=== PATIENT | male | born 1985 | race Caucasian/White ===

== ENCOUNTER 2016-06-02 09:08 | Emergency (ER) | payer MEDICAID ==
[~2016-06-02] VITALS: Ht 170.2 cm; Wt 77.1 kg
[2016-06-02] MEDS ORDERED: BUPRENORPHINE H1 TAB SL (09:24)
--- NOTE | 2016-06-02 09:36 | Emergency Room Report ---
History of Present Illness Time Seen by 0920 Presenting Problem in Triage Pt arrived:Walked Presenting Problem:SPOUSE STATES PT HAS BEEN VOMITING FOR 4 HOURS WITH PAIN IN SUPRAPUBIC AREA. Onset of symptoms date/time:/ or onset unknown for:MEDICAL HX UNKNOWN Treatment Prior to Arrival: [employer] Provided by: Sepsis Risk Assessment: Temp: 98.1 B/P: 123/71 MAP: 88 Pulse: 69 Resp: 18 Recent fever? N Clinical Suspician of Infection? N Mental Status: 1 - Regular (Normal Baseline) Sepsis Risk:Low Sepsis Risk Have you (or family members/close friends) recently traveled outside the [place]? N If Yes, where/when: Have you had exposure to infectious disease within the past month? TB? Other? Specify: Patient with vomiting today, no diarrhea; tends to stay constipated and last BM "a couple days ago" and generally uses Miralax. Denies blood from above or below , having some diffuse abdominal pain. No sick contacts; reports a similar episode in the last few months. FH diverticulitis. ALLERGIES Coded Allergies: No Known Allergies (06/02/16) Home Medications Reported Medications BUPRENORPHINE HCL/NALOXONE HCL (Buprenorphin-Naloxon 8-2 MG Sl) 1 TAB SL DAILY #28 History Medical History General Angina: No NV: No Hypertension? No Hyperlipidemia? No CHF? No COPD? No Asthma? No CVA? No Seizures? No Diabetes? No GB Disease: No MRSA? No TB? No Cancer? No Immunization Hx DT/Tetanus 1-4 Years Ago Surgical Hx Previous Surgery?Y HERNIA REPAIR APPY Social History Smoking Hx Smoker: Current Every Day Smoker Tobacco: Yes Type Cigarettes Packs/day < 1 Pack Alcohol Alcohol: No Review of Systems All Other Systems Reviewed and Negative Genitourinary denies: no symptoms reported. Physical Exam Vital Signs Vital Signs Date Time Temp Pulse Resp B/P Pulse O2 O2 Flow FiO2 Ox Delivery Rate 06/02 0918 98.1 69 18 123/71 97 General Appearance normal appearance, WD/WN, no apparent distress Eye Exam - bilateral eye normal exam Neck normal inspection, supple, full range of motion Respiratory Status Yes: trachea midline, chest symmetrical, non tender chest. No: respiratory distress, tender on palpation, use of accessory muscles, pain on inspiration, pain on expiration, productive cough, non productive cough. Lung Sounds bilateral: normal breath sounds, lungs clear. Cardiovascular normal exam, regular rate/rhythm, no peripheral edema, no gallop, no JVD, no murmur, no rub Gastrointestinal normal bowel sounds, normal exam, non tender, soft, no organomegaly, no guarding, no rebound Extremities normal range of motion Neurologic alert, no motor/sensory deficits, oriented x 3 Skin intact, normal color, warm/dry Medical Decision Making LABS/Meds/Orders Pt receiving controlled substance in ED? No Results/Orders Laboratory Tests 06/02/16 1000: Sodium 146 H, Potassium 4.3, Chloride 110 H, Carbon Dioxide 29, BUN 12, Creatinine 0.7 L, Estimated Creat Clear 168, Estimated GFR (MDRD) 132, Glucose 104, Calcium 8.7, Total Bilirubin 0.3, AST 14 L, ALT 29, Alkaline Phosphatase 95, Total Protein 6.9, Albumin 3.6, Globulin 3.3 H, Albumin/Globulin Ratio 1.1, WBC 9.4, RBC 5.72, Hgb 15.5, Hct 48.6, MCV 84.9, RDW 14.2, Plt Count 196, MPV 8.6, Gran % 82.0 H, Gran # 7.7, Lymphocytes % 12.8, Monocytes % 3.8, Eosinophils % 1.1, Basophils % 0.3, Lymphocytes # 1.2, Monocytes # 0.4, Eosinophils # 0.1, Basophils # 0.0, PUBS MCHC 31.9, MCH 27.1 06/02/16 0930: Urine Color YELLOW, Urine Appearance CLEAR, Urine pH 6.0, Ur Specific [place] >= 1.030, Urine Protein NEGATIVE, Urine Ketones NEGATIVE, Urine Blood NEGATIVE, Urine Nitrate NEGATIVE, Urine Bilirubin NEGATIVE, Urine Urobilinogen 0.2, Ur Leukocyte Esterase NEGATIVE, Urine RBC OCC, Urine WBC OCC, Ur Squamous Epith Cells OCC, Urine Bacteria 2+, Urine Mucus 2+, Urine Glucose NEGATIVE Current Medication Orders Sig/Opal Start time Last Medication Dose Route Stop Time Status Admin Ondansetron HCl 4 MG ONCE ONE 06/02 929 DC 06/02 SL 06/02 Ondansetron HCl 0 .STK-MED ONE 06/02 927 DC .ROUTE Orders Procedure Date/time Status DIET-NOTHING BY MOUTH 06/02 L Active CBC WITH AUTO DIFF 06/02 949 Complete CHEM 12 PROFILE 06/[address] ABD/PELVIS REQ 06/02 946 Complete CULTURE, URINE 06/02 929 Active URINALYSIS/COMPLETE 06/02 927 Complete XRAY/CT/US XRAY/CT/US CT abdomen, pelvis CT interpretation by reviewed by me (report reviewed) Time results known: 1053 Progress ED Progress Notes Date 06/02/16 Time 1049 Comment No further vomiting, resting comfortably. Departure Departure Time of Disposition 1053 Disposition DC Home or Self Care(routine) Clinical Impression Primary Impression: Abdominal cramping Secondary Impressions: Vomiting Qualifiers: Vomiting type: unspecified Vomiting Intractability: non-intractable Nausea presence: without nausea Qualified Code: R11.11 - Vomiting without nausea Condition STABLE Referrals MIKE TORRES APRN (Family) Patient Instructions Acute Abdomen, DI for Vomiting -- Adult Additional Instructions Clear liquids, increase to food as tolerated, see Mike Torres in one to two days, Rx Zofran Discharge Counseling Counseled pt/family regarding diagnosis, test results, medications/RX, home care, follow up needs Prescriptions Current Visit Scripts Ondansetron (Zofran 4MG Odt) 4 MG PO Q6HP PRN NAUSEA AND VOMITING #6 ODT ED Critical Care Critical Care No at 1055
[2016-06-02 09:38] LABS: URINE BILIRUBIN - DIPSTICK NEGATIVE (NEG); URINE BLOOD NEGATIVE (NEG)
[2016-06-02 09:57] LABS: URINE SQUAMOUS CELLS OCC #/hpf (OCC)
[2016-06-02 10:30] LABS: HEMOGLOBIN 15.5 g/dL (14.1-18.0); LYMPH # 1.2 K/mm3 (0.7-4.5); LYMPH % 12.8 % (10-50)
--- NOTE | 2016-06-02 10:43 | RADIOLOGY REPORT PS360 ---
CT ABD PELVIS W/O CONTRAST CLINICAL INDICATION: Vomiting with mid abdominal pain DIFFUSE CRAMPING PAIN AND VOMITING , FAM HX DIVERTICULITIS ORDERING PHYSICIAN: Jaclyn Menchaca MD PATIENT AGE: 30 years COMPARISON: None TECHNIQUE: Axial images obtained with sagittal and coronal reformats. PROCEDURE: Oral Contrast: None IV Contrast: None . FINDINGS: Minimal atelectatic or fibrotic changes are present in the right lung base. A 4 mm noncalcified nodule is present in the left lung base. Calcified granuloma is present in the right lung base. The liver, spleen, adrenal glands, gallbladder, and pancreas have an unremarkable unenhanced CT appearance. The kidneys are unremarkable. No renal calculi or hydronephrosis. There are scattered small nodes in the retroperitoneum and mesentery's nonspecific. Surgical clips are present anterior to the right psoas muscle in the right lower quadrant. Nonspecific nonobstructive bowel gas pattern. No evidence of diverticulitis. No focal inflammatory change, intestinal obstruction, or free air is evident. There is a tiny umbilical hernia which contains fat IMPRESSION: No acute intra-abdominal or pelvic pathology.
[2016-06-02] MEDS ORDERED: ZOFRAN ODT4 MG PO (10:56)
[2016-06-02 11:00] VITALS: BP 117/64
[2016-06-06] MEDS ORDERED: MIRALAX17 GM/PACK PO (09:05)
[2016-06-07] MEDS ORDERED: LEVAQUIN500 MG PO (12:28)
== END 2016-06-02 11:02 | disposition home or self-care (01) ==
LOC: ER 09:08
PROVIDERS: Emergency Medicine
DX: R11.11 Vomiting without nausea (principal); Z72.0 Tobacco use